=== PATIENT | male | born 1940 | race Caucasian/White ===

== ENCOUNTER 2022-11-07 10:10 | Outpatient (CLI) | payer MEDICARE, OTHER, SELFPAY | END 2022-11-07 10:11 | disposition home or self-care (01) | PROVIDERS: Visit Provider Nurse Practitioner Family | DX: I10 Essential (primary) hypertension (principal); E78.5 Hyperlipidemia, unspecified; E87.1 Hypo-osmolality and hyponatremia | CPT/HCPCS: 80053; 80061 ==

== ENCOUNTER 2024-01-03 14:00 | Outpatient (CLI) | payer MEDICARE, SELFPAY ==
--- OUTSIDE RECORDS SUMMARY | 2024-01-03 14:03 | XMS_ITS | Clinical Summary ---
Author Organization [facility] Address [address] [place] [address] Care Team Providers Care Biomedical Engineering Aide Name Role Phone Elsewhere, Pcp Primary Care Provider Unavailabl e Source Comments Patient records contain information from all sites at [facility]. For routine questions regarding patient records, call [phone] during business hours, M-F 8:00 AM - 5:00 PM Central Time. Record requests for emergency care only can be directed to [phone] at any time.[facility] Allergies Active Allergy Reactions Criticality Noted Date Comments Codeine GI intolerance 08/10/2003 Lisinopril 09/02/2012 Other reaction(s): Cough Medications Medication Sig Dispensed Refills Start Date End Date Status trolamine salicylate 10 % lotion Apply topically as needed. 11/08/[address] Active [address] tablet Take 1 tablet by mouth every evening. 03/21/2012 Active psyllium husk (METAMUCIL ORAL) Take by mouth at bedtime. 2 heaping teaspoonfuls 01/18/2015 Active MULTIVITAMIN ORAL Take 1 tablet by mouth daily. 10/06/2008 Active omega-3 fatty acids/fish oil (OMEGA 3 FISH OIL ORAL) Take 1 capsule by mouth 2 (two) times a day. 01/18/2015 Active metoprolol succinate (TOPROL-XL) 25 mg 24 hr tablet Take 1 tablet (25 mg total) by mouth daily. Do not crush or chew tablet. 90 tablet 3 02/06/2022 Active ezetimibe (Zetia) 10 mg tablet Take 1 tablet (10 mg total) by mouth daily. 90 tablet 3 02/06/2022 Active atorvastatin (LIPITOR) 80 mg tablet Take 1 tablet (80 mg total) by mouth at bedtime. 90 tablet 3 02/06/2022 Active citalopram (CeleXA) 10 mg tablet Take 1 tablet (10 mg total) by mouth daily. 90 tablet 3 02/06/2022 Active nitroglycerin (NITROSTAT) 0.[address] 1 tablet (0.4 mg total) under the tongue every 5 (five) minutes as needed for chest pain. 25 tablet 02/06/2022 Active amLODIPine (NORVASC) 10 mg tablet Take 1 tablet (10 mg total) by mouth daily. 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 11/05/2014 Elevated Liver Enzyme Abnorm al, Aspartate Transaminase, Serum Glutamic-Oxaloacetic Transaminase, Alanine Transaminase 09/10/2014 Atherosclerotic Heart Diseas e Of [place] Coronary Artery Without Angina Pectoris 08/30/2012 Hypertensive Heart Disease Without Heart Failure 04/18/2004 Hyperlipidemia 08/10/2003 Immunizations Name Administration Dates Next Due H1N1 All Forms 05/11/2009 HZV (ZOSTAVAX) 09/06/2007 Influenza (IM) Preservative Free 04/08/2008,01/2007 Influenza high dose QV(65 ye ars or older) (PF) 03/10/2021 Influenza, Quadrivalent, Adj uvanted, Preservative Free 03/19/2020 Influenza, Seasonal, Injectable 03/26/20 06,04/06/2005,03/23/2003,2001,05/13/2001,04/26/2000,03/14/1999,0 05/21/1997 Influenza, Unspecified 03/21/2009 PCV13 09/10/2014 PPSV23 09/13/2006,04/06/2005(Deferred: Other) RZV (SHINGRIX) 06/10/2020(Deferred: Other - getting covid vaccine, will wait),01/07/2020,12/17/2017(Deferred: Other - vaccine shortage) SARS-COV-2 (COVID-19) - PFIZ ER (Discontinued)(12 years or older) 03/10/2021,07/02/2020,06/11/2020 Td (Adult), adsorbed 11/30/2006,12/10/2000 Tdap 03/19/2012 Zoster, Unspecified 06/10/2020(Deferred: Other) influenza high dose (65 year s or older) (PF) 03/21/2019,03/07/2017,05/08/2016,2014,03/16/2014,03/17/2013,03/19/2012,1 ,04/01/2010 Family History Medical History Relation Name Comments Stroke Brother 1 No Known Problems Daughter Heart failure Father Cancer Mother MVA - Motor vehicle accident Sister 1 No Known Problems Son 1 No Known Problems Son 2 Relation Name Status Comments Brother 1 Alive Brother 2 Alive Brother 3 Alive Brother 4 Alive Daughter Alive Father (Age 80) Mother (Age 40) Sister 1 (Age 30) Sister 2 Alive Sister 3 Alive Sister 4 Alive Sister 5 Alive Son 1 Alive Son 2 Alive Social History Tobacco Use Types Packs/Day Years Used Date Smoking Tobacco: Never Smokeless Tobacco: Never Tobacco Cessation:Counseling Given: Not Answered Alcohol Use Standard Drinks/Week Comments Yes 14 (1 standard drink = 0.6 oz pu re alcohol) PHQ-2 Answer Date Recorded PHQ-2 Score 0 02/06/2022 Nutrition Answer Date Recorded Nutrition: EVOO Fat Source Unknown 07/13 Nutrition: Servings of Fruits/Vegetables per Day Not on file 07/13/2020 Dental Answer Date Recorded Dental: Regular Dentist Unknown 07/13/19 Sex and Gender Information Value Date Recorded Sex Assigned at Not on file Gender Identity Not on file Sexual Orientation Not on file Last Filed Vital Signs Vital Sign Reading Time Taken Comments Blood Pressure 154/86 04/17/2022 12:15 PM REGISTERED NURSE CARDIAC TELEMETRY Pulse 62 04/17/2022 12:15 PM REGISTERED NURSE CARDIAC TELEMETRY Temperature 36.4 ??C (97.5 ??F) 02/06/2022 9:51 AM CD T Respiratory Rate 18 02/06/2022 9:51 AM CDT Oxygen Saturation - - Inhaled Oxygen Concentration - - Weight 106 kg (233 lb) 02/06/2022 9:51 AM CDT Height 182.9 cm (6') 02/06/2022 9:51 AM CDT Body Mass Index 31.6 02/06/2022 9:51 AM CDT Plan of Treatment Health Maintenance Due Date Last Done Comments Hepatitis A Vaccines (1 of 2 - Risk 2-dose series) 12/12/1959 Hepatitis B Vaccines (2 of 2 - CpG (Heplisav) risk 2-dose series) 03/20/2022 02/20/2022 Office Visit for Blood Press ure Check / Re-check 07/18/2022 04/17/2022, 02/06/2022 COVID-19 Vaccine ( - 2022-2 4 season) 2023 03/10/2021, 07/02/2020, 06/11/2020 Creatinine Level (Kidney Fun ction Test) 02/06/2023 02/06/2022, 06/10/2020, 02/17/2019, Additional history exists Potassium Level 02/06/2023 02/06/2022, 05/22, 02/17/2019, Additional history exists Sodium Level 02/06/2023 02/06/2022, 05/22, 02/17/2019, Additional history exists Depression Screening (Annual PHQ-2) 05/21/2023 Fall Risk Screen (Annual) 05/21/2023 Influenza Vaccine (#1) 2024 3, 02/20/2022, 03/10/2021, Additional history exists DTaP,Tdap,and Td Vaccines (3 - Td or Tdap) 02/21/2032 02/20/2022, 03/19/2012, 11/30/2006, Additional history exists Pneumococcal vaccine (65+ years) Completed 09/11/19 15, 09/13/2006 Zoster Vaccines Completed 02/20/2022, 12/19, 09/06/2007 Medical Devices Implanted Type Area Telemetry Tech Device Identifier Shelf Expiration Date Model / Serial / Lot Conversions - Default Historical Implant Device Implanted:08/11 (Quantity not on file) Cardiac Other Left: Chest Description:Body Location - Chest L. Device Status Text - CardOther. Triple Bypass. Conversions - Default Historical Implant Device Implanted:07/19 (Quantity not on file) Cardiac Stent Left: Chest Description:Body Location - Chest L. Device Status Text - Cardiac. Conversions - Default Historical Implant Device Implanted:07/19 (Quantity not on file) Cardiac Stent Left: Chest Description:Body Location - Chest L. Device Status Text - Cardiac. Hutchinson Screw 2 Canc 6.5 X 35 - Taylor [id number] Implanted:Qty: 1 on 04/03/2012 Hardware e.g. pins/screws /rods [employer] Description:Device Manufactu rer - J [employer] J Ortho. Device Status Text - [id number]. Hutchinson Screw 2 Canc 6.5 X 20 - Taylor [id number] Implanted:Qty: 1 on 04/03/2012 Hardware e.g. pins/screws /rods [employer] Description:Device Manufactu rer - J [employer] J Orth[employer]. Device Status Text - [id number]. J J Insert P Teresa Neut 36x64 - Taylor [id number] Implanted:Qty: 1 on 04/03/2012 Hip Implant Other/Legacy - See Implant Description [employer] Description:Device Manufactu rer - J [employer] J [employer]. Body Location - Other. Right. Device Status Text - [id number]. Hutchinson Shell Multi 2 64mm - Taylor [id number] Implanted:Qty: 1 on 04/03/2012 Hip Implant Other/Legacy - See Implant Description [employer] Description:Device Manufactu rer - J [employer] J [employer]. Body Location - Other. Right. Device Status Text - [id number]. Depuy Stem Std Corail Sz 11 - Taylor [id number] Implanted:Qty: 1 on 04/03/2012 Hip Implant Other/Legacy - See Implant Description [employer] Description:Device Manufactu rer - J [employer] J [employer]. Body Location - Other. Right. Device Status Text - [id number]. J J Articul Efraín Head 36 + 1.5 - Taylor [id number] Implanted:Qty: 1 on 04/03/2012 Hip Implant Other/Legacy - See Implant Description [employer] Description:Device Manufactu rer - [employer]. Body Location - Other. Right. Device Status Text - [id number] [id number]. Procedures Procedure Name Priority Date/Time Associated Diagnosis Comments COMPREHENSIVE METABOLIC PANEL, S/P Routine 02/06/2022 10:41 AM CDT Hypertensive Heart Disease Without Heart Failure from Last 3 Months or Most Recently Relevant to Health Maintenance Results * Comprehensive Metabolic Panel (02/06/2022 10:41 AM CDT) Potassium, P 4.7 3.6 - 5.2 mmol/L 02/06/2022 7:07 PM CDT OWAT Sodium, P 137 135 - 145 mmol/L 02/06/2022 7:07 PM CDT OWAT Chloride, P 100 98 - 107 mmol/L 02/06/2022 7:07 PM CDT OWAT Bicarbonate, P 26 22 - 29 mmol/L 02/06/2022 7:07 PM CDT OWAT Anion Gap, P 11 7 - 15 02/06/2022 7:07 PM CDT OWAT BUN (Blood Urea Nitrogen), P 12 8 - 24 mg/dL 02/06/2022 7:07 PM CDT OWAT Creatinine 0.79 0.74 - 1.35 mg/dL 02/06/2022 7:07 PM CDT OWAT Estimated GFR (eGFR) 89 >=60 mL/min/BS A 02/06/2022 7:07 PM CDT OWAT Comment: Estimated GFR calculated using the 2020 CKD_EPI creatinine equation. Calcium, Total, P 9.6 8.8 - 10.2 mg/dL 02/06/2022 7:07 PM CDT OWAT Glucose, P 105 70 - 140 mg/dL 02/06/2022 7:07 PM CDT OWAT Protein, Total, P 7.2 6.3 - 7.9 g/dL 02/06/2022 7:07 PM CDT OWAT Albumin, P 4.4 3.5 - 5.0 g/dL 02/06/2022 7:07 PM CDT OWAT Aspartate Aminotransferase (AST), P 26 8 - 48 U/L 02/06/2022 7:07 PM CDT OWAT Alkaline Phosphatase, P 78 40 - 129 U/L 02/06/2022 7:07 PM CDT OWAT Alanine Aminotransferase (ALT), P 22 7 - 55 U/L 02/06/2022 7:07 PM CDT OWAT Bilirubin, Total, P 1.0 <=1.2 mg/dL 02/06/2022 7:07 PM CDT OWAT Blood (Blood, Venous) 02/06/2022 10:41 AM CDT 02/06/2022 6:37 PM CDT Chance Garcia APRN, C.N.P., D.N.PRoldan LA B BLOOD ADD-ON [facility] [address] [place] [address], [place] [address] [facility] [place] [address] [place] [address] from Last 3 Months or Most Recently Relevant to Health Maintenance Advance Directives For more information, please contact: [phone] Documents on File Type Date Recorded Patient Oceanography Teacher Expl anation Advance Directives 11/21/2003 12:00 AM Denita moreno document. See document viewer. Care Teams Biomedical Engineering Aide Relationship Specialty Start Date End Date Elsewhere, Pcp PCP - General 06/09/19
--- OUTSIDE RECORDS SUMMARY | 2024-01-03 14:04 | XMS_ITS | Encounter Summary ---
Author Organization [facility] Address [address] [place] [address] Care Team Providers Care Athletic Equipment Custodian Name Role Phone Elsewhere, Pcp Primary Care Provider Unavailabl e Encounter Details Date Type Department Care Team (Late st Contact Info) Description 09/11/2013 Historical Ophthalmology RST OPH Radha Guerrero O.D. [address] [place] [phone] Social History Tobacco Use Types Packs/Day Years Used Date Smoking Tobacco: Never Assessed Sex and Gender Information Value Date Recorded Sex Assigned at Not on file Gender Identity Not on file Sexual Orientation Not on file documented as of this encounter Progress Notes * Radha Guerrero O.D. - 09/11/2013 9:48 AM CDT Eye General CHIEF COMPLAINT update glasses Rx for new frames HISTORY OF PRESENT ILLNESS Patient denies eye pain, flashing lights, diplopia or floaters. IMPRESSION / REPORT / PLAN #1 Refractive error (hyperopic astigmatism, presbyopia). Plan: spectacle prescription (Refraction 2) given. #2 Mild cataracts, both eyes Plan: observe. RTC 2 years or prn. DIAGNOSIS #1 Refractive error (hyperopic astigmatism, presbyopia). #2 Mild cataracts, both eyes CDM Reports - [facility] Id: [id number] Status: Fnl documented in this encounter Plan of Treatment Not on file documented as of this encounter Visit Diagnoses Not on filedocumented in this encounter Additional Health Concerns Assessment Noted Time PHQ-9 Depression Total Score: 1 11/28/19 13 8:13 AM CDT documented as of this encounter Care Teams Athletic Equipment Custodian Relationship Specialty Start Date End Date Elsewhere, Pcp PCP - General 06/09/19 documented as of this encounter
--- OUTSIDE RECORDS SUMMARY | 2024-01-03 14:04 | XMS_ITS | Encounter Summary ---
Author Organization [facility] Address [address] [place] [address] Care Team Providers Care Spotter Name Role Phone Elsewhere, Pcp Primary Care Provider Unavailabl e Encounter Details Date Type Department Care Team (Late st Contact Info) Description 09/30/2009 Historical Ophthalmology RST OPH Rigoberto Loera M.D. [address] [place] [phone] Social History Tobacco Use Types Packs/Day Years Used Date Smoking Tobacco: Never Assessed Sex and Gender Information Value Date Recorded Sex Assigned at Not on file Gender Identity Not on file Sexual Orientation Not on file documented as of this encounter Progress Notes * Rigoberto Loera M.D. - 09/30/2009 12:33 PM CDT Eye General CHIEF COMPLAINT Dermatochalasis HISTORY OF PRESENT ILLNESS JJL: Has had lashes from right upper lid obstructing vision for the past several years. Never feelslike they are scratching the eye but he does have discomfort around the eye occasionally. Small eyelid nodule present for past year or so. GBB: Above history reviewed with patient; emendations made. Sleeps on his stomach, usually. He denies obstructive sleep apnea symptoms but his thinks he does occasionally exhibit some symptoms. IMPRESSION / REPORT / PLAN Consult requested by: Florencio Maciel, [phone] #1 Lesion, right upper eyelid margin Most likely, this is an intradermal nevus although basal cell carcinoma is a possibility. Options include observation versus excisional biopsy. Excision is reasonable in light of the history of recent growth and the opportunity to establish a tissue diagnosis. Expectations and risks, including bleeding, infection, recurrence, madarosis, and trichiasis, discussed. The patient understands and wishes to proceed. #2 Floppy eyelid syndrome, right upper eyelid. He exhibits typical early features. Assuming that the right upper eyelid lesion is benign, could consider pentagonal wedge resection to remove the majority of the misdirected eyelashes and tighten the eyelid. Probably does not have obstructive sleep apnea although I warned them of this association and encouraged Mrs. Suggs to let us know if symptoms develop so that we can refer to Sleep Medicine. DIAGNOSIS #1 Lesion, right upper eyelid margin #2 Floppy eyelid syndrome, right upper eyelid. CDM Reports - [employer] Id: [id number] Status: Fnl documented in this encounter Plan of Treatment Not on file documented as of this encounter Visit Diagnoses Not on filedocumented in this encounter Care Teams Spotter Relationship Specialty Start Date End Date Elsewhere, Pcp PCP - General 06/09/19 documented as of this encounter
--- OUTSIDE RECORDS SUMMARY | 2024-01-03 14:04 | XMS_ITS | Encounter Summary ---
Author Organization [facility] Address [address] [place] [address] Care Team Providers Care It Corporate Recruiter Name Role Phone Elsewhere, Pcp Primary Care Provider Unavailabl e Encounter Details Date Type Department Care Team (Late st Contact Info) Description 11/30/2003 Historical Ophthalmology RST OPH Chrystal Ruiz M.D. Social History Tobacco Use Types Packs/Day Years Used Date Smoking Tobacco: Never Assessed Sex and Gender Information Value Date Recorded Sex Assigned at Not on file Gender Identity Not on file Sexual Orientation Not on file documented as of this encounter Progress Notes * Chrystal Ruiz M.D. - 11/30/2003 12:00 AM CDT Eye General CHIEF COMPLAINT ?FB right eye HISTORY OF PRESENT ILLNESS The patient was using a refractory grinder operator a few days ago and thinks he may have gotten some dust in the righteye. Yesterday the right eye began mattering and the vision became blurred. The patient is not having a FB sensation. He is having some mattering in the left eye as well. No other concerns. Pt grinding metal with caramel cutter hand 2 days prior - wearing glasses, but not goggles. He developed redness, mattering with tearing on the right eye 2 days later. No contact lenses. No seasonal allergies. Pt did have some symptoms of URI as did her - sore throat and cough. IMPRESSION / REPORT / PLAN #1 Foreign Body Sensation, Right Eye Pt's eye flushed and swept with saline. No foreign body visualized. Pt was using erythromycin QID. He is to continue with follow-up scheduled in four days for dilated exam. #2 Cataracts, both eyes, mild Observe DIAGNOSIS #1 Foreign Body Sensation, Right Eye #2 Cataracts, both eyes, mild CDM Reports - [facility] Id: [id number] Status: Fnl documented in this encounter Plan of Treatment Not on file documented as of this encounter Visit Diagnoses Not on filedocumented in this encounter Care Teams It Corporate Recruiter Relationship Specialty Start Date End Date Elsewhere, Pcp PCP - General 06/09/19 documented as of this encounter
--- OUTSIDE RECORDS SUMMARY | 2024-01-03 14:04 | XMS_ITS ---
Author Organization [facility] Address [address] [place] [address] Care Team Providers Care Doctor Chiropractic Name Role Phone Unavailable Unavailable Unavailable Surgery Details Not on file Complications Check Surgery Details section. Procedure Estimated Blood Loss Check Surgery Details section. Procedure Findings Check Surgery Details section. Procedure Specimens Taken Check Surgery Details section.
--- OUTSIDE RECORDS SUMMARY | 2024-01-03 14:04 | XMS_ITS | Encounter Summary ---
Author Organization [facility] Address [address] [place] [address] Care Team Providers Care Tonal Regulator Name Role Phone Elsewhere, Pcp Primary Care Provider Unavailabl e Encounter Details Date Type Department Care Team (Late st Contact Info) Description 11/30/2009 Historical Ophthalmology RST OPH Rigoberto Loera M.D. [address] [place] [phone] Social History Tobacco Use Types Packs/Day Years Used Date Smoking Tobacco: Never Assessed Sex and Gender Information Value Date Recorded Sex Assigned at Not on file Gender Identity Not on file Sexual Orientation Not on file documented as of this encounter Progress Notes * Rigoberto Loera M.D. - 11/30/2009 9:03 AM CDT Eye Postoperative MULTI-VISIT DOCUMENT This document contains multiple patient visits and is available for review in Document Viewer. CDM Reports - [facility] Id: [id number] Status: Fnl documented in this encounter Plan of Treatment Not on file documented as of this encounter Visit Diagnoses Not on filedocumented in this encounter Care Teams Tonal Regulator Relationship Specialty Start Date End Date Elsewhere, Pcp PCP - General 06/09/19 documented as of this encounter
--- OUTSIDE RECORDS SUMMARY | 2024-01-03 14:04 | XMS_ITS | Encounter Summary ---
Author Organization [facility] Address [address] [place] [address] Care Team Providers Care Director Community Health Nursing Name Role Phone Elsewhere, Pcp Primary Care Provider Unavailabl e Encounter Details Date Type Department Care Team (Late st Contact Info) Description 02/26/2007 Historical Ophthalmology RST OPH Radha Guerrero O.D. [address] [place] [phone] Social History Tobacco Use Types Packs/Day Years Used Date Smoking Tobacco: Never Assessed Sex and Gender Information Value Date Recorded Sex Assigned at Not on file Gender Identity Not on file Sexual Orientation Not on file documented as of this encounter Progress Notes * Radha Guerrero O.D. - 02/26/2007 1:05 PM CDT Eye General CHIEF COMPLAINT Routine exam HISTORY OF PRESENT ILLNESS Patient denies eye concerns. No flashing lights, floaters, or double vision. IMPRESSION / REPORT / PLAN #1 Hyperopic Astigmatism, Presbyopia Plan: SRx given, refraction two #2 Cataracts, both eyes, mild Plan: Observe, discussed. RTC 1-2 years or prn DIAGNOSIS #1 Hyperopic Astigmatism, Presbyopia #2 Cataracts, both eyes, mild CDM Reports - [facility] Id: [id number] Status: Fnl documented in this encounter Plan of Treatment Not on file documented as of this encounter Visit Diagnoses Not on filedocumented in this encounter Care Teams Director Community Health Nursing Relationship Specialty Start Date End Date Elsewhere, Pcp PCP - General 06/09/19 documented as of this encounter
--- OUTSIDE RECORDS SUMMARY | 2024-01-03 14:04 | XMS_ITS | Encounter Summary ---
Author Organization [facility] Address [address] [place] [address] Care Team Providers Care Pull Worker Name Role Phone Elsewhere, Pcp Primary Care Provider Unavailabl e Encounter Details Date Type Department Care Team (Late st Contact Info) Description 12/04/2003 Historical Ophthalmology RST OPH Chrystal Ruiz M.D. Social History Tobacco Use Types Packs/Day Years Used Date Smoking Tobacco: Never Assessed Sex and Gender Information Value Date Recorded Sex Assigned at Not on file Gender Identity Not on file Sexual Orientation Not on file documented as of this encounter Progress Notes * Chrystal Ruiz M.D. - 12/04/2003 12:00 AM CDT Eye General CHIEF COMPLAINT recheck foreign body sensation right eye HISTORY OF PRESENT ILLNESS Pt with 1 week history of redness and iritation of both eyes R worse than left. Pt grinds metal infrequently and did grind two days prior to events noted. Pt noticed redness and irritation had spread from the right eye to the left eye. The left eye resolved but still has some redness and irritation over right eye. Pt had some mattering of both eyes through the course of 1 week. No contact lens, no seasonal allergies, no trauma, no sick contacts, no URI. IMPRESSION / REPORT / PLAN #1 Foreign Body Sensation, Right Eye Pt to continue erythromycin QHS for 3 more days. He is to return PRN if not improved and call Eye Clinic Numbers over weekend if worsened. #2 [place]ominian Gland Dysfunction Lid hygiene and artificial tears. #3 Cataracts, both eyes, mild Observe DIAGNOSIS #1 Foreign Body Sensation, Right Eye #2 Meibominian Gland Dysfunction #3 Cataracts, both eyes, mild CDM Reports - [facility]GEN Id: [id number] Status: Fnl documented in this encounter Plan of Treatment Not on file documented as of this encounter Visit Diagnoses Not on filedocumented in this encounter Care Teams Pull Worker Relationship Specialty Start Date End Date Elsewhere, Pcp PCP - General 06/09/19 documented as of this encounter
--- OUTSIDE RECORDS SUMMARY | 2024-01-03 14:04 | XMS_ITS | Encounter Summary ---
Author Organization [facility] Address [address] [place] [address] Care Team Providers Care Rand Butting Machine Operator Name Role Phone Elsewhere, Pcp Primary Care Provider Unavailabl e Encounter Details Date Type Department Care Team (Late st Contact Info) Description 09/20/2009 Historical Ophthalmology RST OPH Florencio Maciel O.D. [address] [place] [address] Social History Tobacco Use Types Packs/Day Years Used Date Smoking Tobacco: Never Assessed Sex and Gender Information Value Date Recorded Sex Assigned at Not on file Gender Identity Not on file Sexual Orientation Not on file documented as of this encounter Progress Notes * Florencio Maciel O.D. - 09/20/2009 8:29 AM CDT Eye Subsequent Visit HISTORY OF PRESENT ILLNESS Patient reports upper lashes of RE growing downward, has been this way for a long time. Patient states it has always afected his vision. This does irratate his rt. eye and makes it red.Patient reports no visual changes. Denies diplopia, flashes of light, floaters and ocular pain. IMPRESSION / REPORT / PLAN #1 Dermatochalasis both eyes, visually symptomatic right eye Plan: get oculuplastic consult. #2 Lid papilloma, right eye, with aberrant lashes. Plan: epilated lashes #3 Meibomian gland dysfunction both eyes. Plan: hot compresses. 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 CDM Reports - EYESV Id: [id number] Status: Fnl documented in this encounter Plan of Treatment Not on file documented as of this encounter Visit Diagnoses Not on filedocumented in this encounter Care Teams Rand Butting Machine Operator Relationship Specialty Start Date End Date Elsewhere, Pcp PCP - General 06/09/19 documented as of this encounter
--- OUTSIDE RECORDS SUMMARY | 2024-01-03 14:04 | XMS_ITS | Encounter Summary ---
Author Organization [facility] Address [address] [place] [address] Care Team Providers Care Provider Engagement Executive Name Role Phone Elsewhere, Pcp Primary Care Provider Unavailabl e Encounter Details Date Type Department Care Team (Late st Contact Info) Description 11/06/2011 Historical Ophthalmology RST OPH Bri Oh O.D. [address] [place] [phone] Social History Tobacco Use Types Packs/Day Years Used Date Smoking Tobacco: Never Assessed Sex and Gender Information Value Date Recorded Sex Assigned at Not on file Gender Identity Not on file Sexual Orientation Not on file documented as of this encounter Progress Notes * Bri Petersen O.D. - 11/06/2011 10:03 AM CDT Eye General CHIEF COMPLAINT needs new glasses HISTORY OF PRESENT ILLNESS Last seen in Ophthalmology 2009. Patient reports no change in vision. Patient denies pain, flashes, floaters or diplopia. IMPRESSION / REPORT / PLAN #1 Refractive error (hyperopic astigmatism, presbyopia). Plan: spectacle prescription (Refraction 1) given. RTC 2-3 years or prn. DIAGNOSIS #1 Refractive error (hyperopic astigmatism, presbyopia). CD Reports - EYEGEN Id: [id number] Status: Fnl documented in this encounter Plan of Treatment Not on file documented as of this encounter Visit Diagnoses Not on filedocumented in this encounter Care Teams Provider Engagement Executive Relationship Specialty Start Date End Date Elsewhere, Pcp PCP - General 06/09/19 documented as of this encounter
--- OUTSIDE RECORDS SUMMARY | 2024-01-03 14:04 | XMS_ITS | Referral Summary ---
Author Organization [facility] Address [address] [place] [address] Care Team Providers Care Change Room Attendant Name Role Phone Elsewhere, Pcp Primary Care Provider Unavailabl e Source Comments Patient records contain information from all sites at [facility]. For routine questions regarding patient records, call [phone] during business hours, M-F 8:00 AM - 5:00 PM Central Time. 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 Hypertensive [...] year s or older) (PF) 03/21/2019,03/07/2017,05/08/2016,2014,03/16/2014,03/17/2013,03/19/2012,1 ,04/01/2010 Social History Tobacco Use Types Packs/Day Years [...] Date Recorded Dental: Regular Dentist Unknown 07/13/19 21 Sex and Gender Information Value Date Recorded Sex Assigned at Not on file Gender Identity Not on file Sexual Orientation Not on file Last Filed Vital Signs Vital Sign Reading Time Taken Comments Blood Pressure 154/86 04/17/2022 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 Device Status Text - Cardiac. [place] Screw 2 Canc 6.5 X 35 - Taylor [id number] Implanted:Qty: 1 on 04/03/2012 Hardware e.g. pins/screws /rods [email or web address] Description:Device Manufactu rer - [employer]. Device Status Text - [id number]. [place] Screw 2 Canc 6.5 X 20 - Taylor [id number] Implanted:Qty: 1 on 04/03/2012 Hardware e.g. pins/screws /rods [employer] Description:Device Manufactu rer - [employer]. Device Status Text - [id number]. J J Insert P Teresa Neut 36x64 - Taylor [id number] Implanted:Qty: 1 on 04/03/2012 Hip Implant Other/Legacy - See Implant Description [employer] Description:Device Manufactu rer - [employer]. Body Location - Other. Right. Device Status Text - [id number] [id number]. [place] Shell Multi 2 64mm - Taylor [id number] Implanted:Qty: 1 on 04/03/2012 Hip Implant Other/Legacy - See Implant Description [email or web address] Description:Device Manufactu rer - [employer]. Body Location - Other. Right. Device Status Text - [id number] [id number]. Depuy Stem Std Corail Sz 11 - Taylor [id number] Implanted:Qty: 1 on 04/03/2012 Hip Implant Other/Legacy - See Implant Description [email or web address] Description:Device Manufactu rer - [employer]. Body Location - Other. Right. Device Status Text - [id number] [id number]. J J Articul Efraín Head 36 + 1.5 - Taylor [id number] Implanted:Qty: 1 on 04/03/2012 Hip Implant Other/Legacy - See Implant Description [employer] Description:Device Manufactu [facility] [employer]. Body Location - Other. Right. Device Status Text - [id number] [id number]. Procedures Procedure Name Priority Date/Time Associated Diagnosis [...] CDT Chance Garcia APRN, C.N.P., D.N.PRoldan [place] Florentin BLOOD ADD-ON [facility] [address] [place] [address], [place] [facility] [place] [address] [place] [address] from Last 3 Months or Most Recently Relevant to Health Maintenance Advance Directives For more information, please contact: [phone] Documents on File Type Date Recorded Patient Glass Lathe Operator Expl anation Advance Directives 11/21/2003 12:00 AM [place] document. See document viewer. Care Teams Change Room Attendant Relationship Specialty Start Date End Date Elsewhere, Pcp PCP - General 06/09/19
--- OUTSIDE RECORDS SUMMARY | 2024-01-03 14:04 | XMS_ITS | Encounter Summary ---
Author Organization [facility] Address [address] [place] [address] Care Team Providers Care Color Maker Name Role Phone Elsewhere, Pcp Primary Care Provider Unavailabl e Encounter Details Date Type Department Care Team (Late st Contact Info) Description 12/08/2008 Historical Ophthalmology RST OPH Florencio Maciel O.D. [address] [place] [address] Social History Tobacco Use Types Packs/Day Years Used Date Smoking Tobacco: Never Assessed Sex and Gender Information Value Date Recorded Sex Assigned at Not on file Gender Identity Not on file Sexual Orientation Not on file documented as of this encounter Progress Notes * Florencio Maciel O.D. - 12/08/2008 11:13 AM CDT Eye General CHIEF COMPLAINT General exam HISTORY OF PRESENT ILLNESS Patient wears progressive lenses manager multimedia. Patient also has older pair of sunglasses unable to wear. Patient reports no changes in vision, wants to get new glasses and sunglasses. Patient reports upper lashes of RE growing downward, has been this way for a long time. At recent routine appt with family doctor, he noted. Patient states it has always afected his vision, unsure what he could do to correct it. Patient denies eye concerns. No flashing lights, floaters, or double vision. IMPRESSION / REPORT / PLAN #1 Refractive error (hyperopic astigmatism, presbyopia). Plan: spectacle prescription (Refraction 1) given. #2 Lid papilloma, right eye, with aberrant lashes. Plan: epilated lashes, monitor. RTC 1-2 years or prn DIAGNOSIS #1 Refractive error (hyperopic astigmatism, presbyopia). #2 Lid papilloma, right eye, with aberrant lashes. CDM Reports - EYEGEN Id: [id number] Status: Fnl documented in this encounter Plan of Treatment Not on file documented as of this encounter Visit Diagnoses Not on filedocumented in this encounter Care Teams Color Maker Relationship Specialty Start Date End Date Elsewhere, Pcp PCP - General 06/09/19 documented as of this encounter
== END 2024-01-03 14:01 | disposition home or self-care (01) ==
PROVIDERS: PCP Nurse Practitioner Family; Visit Provider Nurse Practitioner Family
DX: Z00.00 Encounter for general adult medical examination without abnormal findings (principal); E78.5 Hyperlipidemia, unspecified; E87.1 Hypo-osmolality and hyponatremia; I10 Essential (primary) hypertension; Z13.0 Encounter for screening for diseases of the blood and blood-forming organs and certain disorders involving the immune mechanism; R10.31 Right lower quadrant pain
CPT/HCPCS: 80053; 80061; 85025